=== PATIENT | male | born 1970 | race Two or more races ===

== ENCOUNTER 2025-03-06 13:48 | Inpatient (IN) | payer MEDICAID, OTHER ==
[~2025-03-06] VITALS: Ht 193 cm; Wt 153.2 kg
--- NOTE | 2025-03-06 15:45 | ED.PDOC ---
GI ASSESSMENT HPI Comments This is a 54 year-old male who presents to the ED with a chief complaint of abdominal pain as of this morning. Patient reports a Hx of diverticulitis, and states symptoms are similar to last diagnoses. Patient reports last BM was X4 days ago. Patient has no further complaints or modifying factors at this time. Patient denies symptoms of blood streaked stool, N/V, dizziness, weakness, or fever. Chief Complaint: Abdominal Pain Time Seen by MD: 15:22 Reviewed Notes: Medications, Allergies Allergies: Coded Allergies: NO KNOWN ALLERGIES (Unverified , 03/06/25) Information Source: Patient Mode of Arrival: Ambulatory Timing: Hours Duration: Since onset Severity: Moderate Pain Location: Diffuse Associated sign and symptoms: Constipation, Abdominal Pain Past Medical History Surgical History: Denies all surgeries Family History Family History: Unknown Social History Smoker: Unknown Alcohol: Unknown Drugs: Unknown Lives In: Home Constitutional: denies: chills, diaphoresis, fatigue, fever, malaise, sweats, weakness, others EENTM: denies: blurred vision, double vision, ear bleeding, ear discharge, ear drainage, ear pain, ear ringing, eye pain, eye redness, hearing loss, mouth pain, mouth swelling, nasal discharge, nose bleeding, nose congestion, nose pain, photophobia, tearing, throat pain, throat swelling, voice changes, others Respiratory: denies: cough, hemoptysis, orthopnea, SOB at rest, shortness of breath, SOB with excertion, stridor, wheezing, others Cardiovascular: denies: chest pain, dizzy spells, diaphoresis, Dyspnea on exertion, edema, irregular heart beat, left arm pain, lightheadedness, palpitations, PND, syncope, others Gastrointestinal: reports: abdominal pain, constipated; denies: abdomen distended, blood streaked bowels, diarrhea, dysphagia, difficulty swallowing, hematemesis, melena, nausea, poor appetite, poor fluid intake, rectal bleeding, rectal pain, vomiting, others Genitourinary: denies: burning, dysuria, flank pain, frequency, hematuria, incontinence, penile discharge, penile sore, pain, testicle pain, testicle swelling, urgency, others Neurological: denies: dizziness, fainting, headache, left sided numbness, left sided weakness, numbness, paresthesia, pre-existing deficit, right sided numbness, right sided weakness, seizure, speech problems, tingling, tremors, weakness, others Musculoskeletal: denies: back pain, gout, joint pain, joint swelling, muscle pain, muscle stiffness, neck pain, others Integumetry: denies: bruises, change in color, change in hair/nails, dryness, laceration, lesions, lumps, rash, wounds, others Allergic/Immunocompromised: denies: Difficulty Healing, Frequent Infections, Hives, Itching, others Hematologic/Lymphatic: denies: anemia, blood clots, easy bleeding, easy bruising, swollen glands, others Endocrine: denies: excessive hunger, excessive sweating, excessive thirst, excessive urination, flushing, intolerance to cold, intolerance to heat, unexplained weight gain, unexplained weight loss, others Psychiatric: denies: anxiety, bipolar disorder, depression, hopeless, panic disorder, schizophrenia, sleepless, suicidal, others All Other Systems: Reviewed and Negative Physical Exam General Appearance: Moderate Distress, Obese HEENT: Normal ENT Inspection, Pharynx Normal, TMs Normal Neck: Full Range of Motion, Non-Tender, Normal, Normal Inspection Respiratory: Chest Non-Tender, Lungs Clear, No Accessory Muscle Use, No Respiratory Distress, Normal Breath Sounds Cardiovascular: No Edema, No JVD, No Murmur, No Gallop, Normal Peripheral Pulses, Regular Rate/Rhythm Breast Exam: Deferred Gastrointestinal: No Organomegaly, Non Tender, No Pulsatile Mass, Normal Bowel Sounds, Soft Genitalia: Deferred Pelvic: Deferred Rectal: Deferred Extremities: No calf tenderness, Normal capillary refill, Normal inspection, Normal range of motion, Non-tender, No pedal edema Musculoskeletal : Apperance: Normal Neurologic: Alert, second class welder II-XII nml as Tested, No Motor Deficits, Normal Affect, Normal Mood, No Sensory Deficits Cerebellar Function: Normal Reflexes: Normal Skin: Dry, Normal Color, Warm Peripheral Pulses: 3+ Radial (R), 3+ Radial (L) Lymphatic: No Adenopathy Was a procedure done? Was a procedure done?: No GI differential Dx Differential Diagnosis: Constipation, Diverticular disease, Esophagitis, Gastritis/PUD, Gastroenteritis, Inflammatory BD, Dehydration, Food Poisoning, Bacterial, Parasitic, Viral X-Ray, Labs, Meds, VS Vital Signs Date Time Temp Pulse Resp B/P (MAP) Pulse Ox O2 Delivery O2 Flow Rate FiO2 11/30/25 17:55 98.2 98 16 159/110 (126) 97 98.2 03/06/25 13:50 98.5 96 16 165/106 93 98.5 Lab Test 03/06/25 15:37 Range/Units White Blood Count 13.5 H 4.4-10.8 10^3/uL Red Blood Count 6.12 H 4.5-5.90 10^6/uL Hemoglobin 15.7 13.5-17.5 g/dL Hematocrit 47.4 41.0-53.0 % Mean Corpuscular Volume 77.5 L 80.0-100.0 fL Mean Corpuscular Hemoglobin 25.7 L 28.0-32.0 pg Mean Corpuscular Hemoglobin Concent 33.2 32.0-36.0 g/dL Red Cell Distribution Width 14.1 11.8-14.3 % Platelet Count 236 140-450 10^3/uL Mean Platelet Volume 8.7 6.9-10.8 fL Neutrophils (%) (Auto) 79.6 37.0-80.0 % Lymphocytes (%) (Auto) 11.4 10.0-50.0 % Monocytes (%) (Auto) 6.0 0.0-12.0 % Eosinophils (%) (Auto) 2.5 0.0-7.0 % Basophils (%) (Auto) 0.5 0.0-2.0 % Neutrophils # (Auto) 10.8 H 1.6-8.6 10 ^3/uL Lymphocytes # (Auto) 1.5 0.4-5.4 10 ^3/uL Monocytes # (Auto) 0.8 0-1.3 10 ^3/uL Eosinophils # (Auto) 0.3 0-0.8 10 ^3/uL Basophils # (Auto) 0.1 0-0.2 10 ^3/uL Nucleated Red Blood Cells 0.1 % Sodium Level 141 136-145 mmol/L Potassium Level 4.1 3.5-5.1 mmol/L Chloride Level 108 H 98-107 mmol/L Carbon Dioxide Level 25 20-31 mmol/L Anion Gap 8 5-15 Blood Urea Nitrogen 13 9-23 mg/dL Creatinine 1.17 0.700-1.30 mg/dL Glomerular Filtration Rate Calc 75 >90 mL/min BUN/Creatinine Ratio 11.1 10.0-20.0 Serum Glucose 90 74-106 mg/dL Calcium Level 9.8 8.7-10.4 mg/dL Patient alert. Complaining of abdominal pain. Vitals stable. Answering questions. Abdomen is soft. WBC elevated. Hemoglobin within normal limits. Blood pressure elevated. Was given clonidine. Establish intravenous access. Was given fluids. Explained to the patient. Continue monitoring. Time of 1ST Reevaluation: 16:19 Reevaluation 1ST: Unchanged Patient Education/Counseling: Diagnosis, Treatment Family Education/Counseling: No Family Present SEPSIS Sepsis Screen Date sepsis recognized/suspect: Mar 06, 2025 Time Sepsis recognized/suspect: 135 Recent Procedure: No On Antibiotic Therapy: No Respiratory Rate >20: No Heart Rate >90: Yes Temp<36 C (96.8 F) or >38.3 C: No SBP <90 or MAP <65 mmHG: No New Acute Mental Status Change: No Is the patient on CPAP, BIPAP,: No Physician Orders Ct Ab Pel Wo Con-No Oral Or Iv (03/06/25 15:30) Sodium Chloride 0.9% (03/06/25 17:30) Metronidazole 500mg/100ml (Flagyl 500mg/ (03/06/25 17:30) Vital Signs Date Time Temp Pulse Resp B/P (MAP) Pulse Ox O2 Delivery O2 Flow Rate FiO2 03/06/25 17:55 98.2 98 16 159/110 (126) 97 98.2 03/06/25 13:50 98.5 96 16 165/106 93 98.5 Laboratory Tests Test 03/06/25 15:37 White Blood Count 13.5 10^3/uL (4.4-10.8) H Departure 1 Departure Time of Disposition: 17:18 Impression: Primary Impression: Non-specific colitis Additional Impressions: Acute abdominal pain Hypertensive urgency Disposition: ADMITTED INPATIENT Admit to: Med Surg Condition: Guarded Critical Care Note Critical Care Time?: No Stability Stability form required: No Heart Score Heart Score: Heart Score Response (Comments) Value History N/A 0 EKG N/A 0 Age N/A 0 Risk Factors N/A 0 Troponin N/A 0 Total 0 I personally scribed for TRISH ELIZALDE MD ([email or web address]) on 03/06/25 at 15:45. Electronically submitted by Mary Alanis ([email or web address]). TRISH ELIZALDE MD Mar 06, 2025 15:45
[2025-03-06 15:51] LABS: Hematocrit 47.4 % (41.0-53.0); Nucleated Red Blood Cells % 0.1 %
[2025-03-06 15:53] LABS: Hemoglobin 15.7 g/dL (13.5-17.5); Mean Corpuscular Hemoglobin 25.7 pg (28.0-32.0); Mean Corpuscular Volume 77.5 fL (80.0-100.0)
[2025-03-06 15:54] LABS: Potassium 4.1 mmol/L (3.5-5.1); Sodium 141 mmol/L (136-145)
[2025-03-06 15:55] LABS: Anion Gap 8 (5-15); Calcium 9.8 mg/dL (8.7-10.4); Carbon Dioxide 25 mmol/L (20-31)
[2025-03-06 16:00] LABS: BUN/Creatinine Ratio 11.1 (10.0-20.0); Blood Urea Nitrogen 13 mg/dL (9-23); Glucose 90 mg/dL (74-106)
[2025-03-06 16:01] LABS: Chloride 108 mmol/L (98-107)
[2025-03-06] MEDS: SODIUM CHLORIDE 0.9% 1,000 ML IV ONE (18:48)
--- NOTE | 2025-03-06 18:51 | DVH ---
COMPUTERIZED TOMOGRAPHY ABDOMEN AND PELVIS WITHOUT CONTRAST REASON FOR EXAM: stone. Flank pain. COMPARISON: None TECHNIQUE: Spiral scans were acquired from the diaphragm to the symphysis pubis without intravenous contrast administration. 2-D coronal and sagittal reformatted images were provided. Radiation optimization: All CT scans at this facility use at least one of these dose optimization techniques: Automated exposure control mA and/or kV adjustment per patient size (includes targeted exams where dose is matched to clinical indication) or iterative reconstruction. RADIATION DOSE: CTDI: 27.84 mGy DLP: 1586.53 mGy-cm FINDINGS: The visualized lung bases are grossly clear. There is no pleural effusion. There is no pericardial effusion. The spleen is not enlarged. The liver is within normal limits for size and contour. The liver is diffusely hypoattenuating. Evaluation of the abdominal organs is suboptimal in the absence of intravenous contrast. No calcified gallstone is identified. Unenhanced appearance of the pancreas is grossly un remarkable. The adrenal glands appear grossly normal. The kidneys are similar in size. There is no hydronephrosis of either kidney. There is no renal, ureteral, or bladder calculus. The urinary bladder is within normal limits. The prostate and seminal vesicles are within normal limits. There is extensive sigmoid diverticulosis without evidence of diverticulitis. The colonic stool burden is small. There is inflammatory stranding surrounding the appendix, consistent with acute appendicitis. The appendix is enlarged at 10 mm in diameter. No free fluid or free air is identified. No acute osseous abnormality is identified. IMPRESSION: Acute appendicitis.
[2025-03-06 18:55] VITALS: PULSE 91; RESP 13; O2SAT 97
[2025-03-06] MEDS ORDERED: ONDANSETRON HCL 4 MG/2 ML VIAL IV PRN (19:15)
[2025-03-06] MEDS ORDERED: MORPHINE SULFATE INJ 2 MG/ml SYRG IV PRN (19:15)
[2025-03-06] MEDS: PANTOPRAZOLE 40 MG/10 ML VIAL INJ IV ONE (19:34)
[2025-03-06 19:44] LABS: INR 1.03 (0.9-1.15); Partial Thromboplastin Time 27.1 SEC (24.5-34.5); Prothrombin Time 10.9 sec (9.3-11.8)
[2025-03-06 19:56] LABS: Alanine Aminotransferase 32.0 U/L (7-40); Albumin 4.9 g/dL (3.2-4.8); Alkaline Phosphatase 79.0 U/L (46-116); Bilirubin, Direct 0.2 mg/dL (<0.3); Bilirubin, Total 0.7 mg/dL (0.2-1.0); Total Protein 8.0 g/dL (5.7-8.2)
--- NOTE | 2025-03-06 21:07 | DVHHPRES ---
History of Present Illness Resident Creating Document: ADALID CHRIS RESIDENT History of Present Illness Patient is a 54-year-old male with previous medical history of diverticulitis/diverticulosis presented to the ED with a chief complaint of intractable right lower quadrant pain. Reports the pain started earlier this morning was [id number] in intensity, nonradiating in the right lower quadrant, denied any associated nausea or vomiting reported that he was feeling constipated and last bowel movement was 3-4 days ago. Patient took a laxative early in the morning and had a bowel movement today while in the hospital, and had small amount of stool. Patient denied any fever, chills. Patient denied any abdominal surgeries in the past. CT abdomen pelvis was done which showed acute appendicitis. Patient will be admitted for further evaluation Medical history: Diverticulitis/diverticulosis Surgical history: Denies Social history: Patient denies smoking, alcohol, drug use Home medications: None Review of Systems Review of Systems Patient seen and examined at the chair side Has a right lower quadrant tenderness Denies nausea, vomiting, fever, chills Allergies: Coded Allergies: NO KNOWN ALLERGIES (Unverified , 03/06/25) Medications Current Medications Medications Dose Ordered Sig/Jessica Route Start Time Stop Time Status Last Admin Dose Admin Ceftriaxone Sodium 50 ml @ 100 mls/hr DAILY@09 IV 03/07/25 09:00 Metronidazole 100 ml @ 100 mls/hr Q8HR IV 03/06/25 22:00 Ondansetron HCl 4 mg Q6HPRN PRN IV 03/06/25 19:15 Pantoprazole Sodium 40 mg DAILY IV 03/07/25 10:00 Morphine Sulfate 2 mg Q6HPRN PRN IV 03/06/25 19:15 Exam Vital Signs Vital Signs Date Time Temp Pulse Resp B/P (MAP) Pulse Ox O2 Delivery O2 Flow Rate FiO2 03/06/25 19:43 131/89 03/06/25 19:38 98.0 89 13 98 98.0 03/06/25 18:55 Room Air* 0 21 Exam Skin - Patients skin is warm and dry. HEENT - normocephalic, atraumatic, moist mucous membranes. Neck - full ROM, no LAD, no JVD Pulmonary - B/L equal breath sounds difficult because of the body habitus, no wheezing or rales appreciable cardiovascular - regular S1,S2 heard, no added sounds, no murmurs heard. GI - soft, nontender abdomen. no hepatospleenomegaly. Bowel sounds normoactive Neurological - Patient is A/O X 4 . Bilateral upper extremity strength 5/5, bilateral lower extremity strength 5/5, no facial droop, normal speech, no tremor, no sensory deficiets. Labs/Xrays Labs Test 03/06/25 18:37 03/06/25 15:37 Range/Units Prothrombin Time 10.9 9.3-11.8 sec Prothrombin Time INR 1.03 0.9-1.15 Activated Partial Thromboplast Time 27.1 24.5-34.5 SEC Lactic Acid Level 1.5 0.4-2.0 mmol/L Total Bilirubin 0.7 0.2-1.0 mg/dL Direct Bilirubin 0.2 <0.3 mg/dL Aspartate Amino Transferase (AST) 22 13-40 U/L Alanine Aminotransferase (ALT) 32 7-40 U/L Alkaline Phosphatase 79 46-116 U/L Total Protein 8.0 5.7-8.2 g/dL Albumin 4.9 H 3.2-4.8 g/dL Thyroid Stimulating Hormone (TSH) 1.02 0.55-4.78 uIU/mL White Blood Count 13.5 H 4.4-10.8 10^3/uL Red Blood Count 6.12 H 4.5-5.90 10^6/uL Hemoglobin 15.7 13.5-17.5 g/dL Hematocrit 47.4 41.0-53.0 % Mean Corpuscular Volume 77.5 L 80.0-100.0 fL Mean Corpuscular Hemoglobin 25.7 L 28.0-32.0 pg Mean Corpuscular Hemoglobin Concent 33.2 32.0-36.0 g/dL Red Cell Distribution Width 14.1 11.8-14.3 % Platelet Count 236 140-450 10^3/uL Mean Platelet Volume 8.7 6.9-10.8 fL Neutrophils (%) (Auto) 79.6 37.0-80.0 % Lymphocytes (%) (Auto) 11.4 10.0-50.0 % Monocytes (%) (Auto) 6.0 0.0-12.0 % Eosinophils (%) (Auto) 2.5 0.0-7.0 % Basophils (%) (Auto) 0.5 0.0-2.0 % Neutrophils # (Auto) 10.8 H 1.6-8.6 10 ^3/uL Lymphocytes # (Auto) 1.5 0.4-5.4 10 ^3/uL Monocytes # (Auto) 0.8 0-1.3 10 ^3/uL Eosinophils # (Auto) 0.3 0-0.8 10 ^3/uL Basophils # (Auto) 0.1 0-0.2 10 ^3/uL Nucleated Red Blood Cells 0.1 % Sodium Level 141 136-145 mmol/L Potassium Level 4.1 3.5-5.1 mmol/L Chloride Level 108 H 98-107 mmol/L Carbon Dioxide Level 25 20-31 mmol/L Anion Gap 8 5-15 Blood Urea Nitrogen 13 9-23 mg/dL Creatinine 1.17 0.700-1.30 mg/dL Glomerular Filtration Rate Calc 75 >90 mL/min BUN/Creatinine Ratio 11.1 10.0-20.0 Serum Glucose 90 74-106 mg/dL Calcium Level 9.8 8.7-10.4 mg/dL SEPSIS Sepsis Screen Date sepsis recognized/suspect: Mar 06, 2025 Time Sepsis recognized/suspect: 1854 Recent Procedure: No On Antibiotic Therapy: No Respiratory Rate >20: No Heart Rate >90: Yes Temp<36 C (96.8 F) or >38.3 C: No SBP <90 or MAP <65 mmHG: No New Acute Mental Status Change: No Is the patient on CPAP, BIPAP,: No Physician Orders Ct Ab Pel Wo Con-No Oral Or Iv (03/06/25 15:30) Blood Culture (03/06/25 18:25) Admit (03/06/25 19:04) Oxygen By Nasal Cannula (03/06/25 19:04) Stat Ekg For Chest Pain (03/06/25 19:04) Notify Of Changes From Base (03/06/25 19:04) Emergency Dysrhythmia Protocol (03/06/25 19:04) Ceftriaxone 1gm/50ml (Rocephin) (03/07/25 09:00) Metronidazole 500mg/100ml (Flagyl 500mg/ (03/06/25 22:00) Npo (Nothing By Mouth) Diet (03/07/25 Breakfast) Ondansetron Hcl (Zofran) (03/06/25 19:15) Pantoprazole (Protonix) (03/07/25 10:00) Morphine Sulfate Injection (03/06/25 19:15) Complete Blood Count (03/07/25 04:00) Urinalysis (03/06/25 19:04) Sodium Chloride 0.9% (03/06/25 19:15) * Surgical Consult (03/06/25 ) Vital Signs Date Time Temp Pulse Resp B/P (MAP) Pulse Ox O2 Delivery O2 Flow Rate FiO2 03/06/25 19:43 131/89 03/06/25 19:38 98.0 89 13 131/89 (103) 98 98.0 03/06/25 18:55 98.0 91 13 135/92 (106) 97 98.0 03/06/25 18:55 91 13 97 Room Air* 0 21 03/06/25 18:21 159/110 03/06/25 17:55 98.2 98 16 159/110 (126) 97 98.2 03/06/25 13:50 98.5 96 16 165/106 93 98.5 Laboratory Tests Test 03/06/25 15:37 03/06/25 18:37 White Blood Count 13.5 10^3/uL (4.4-10.8) H Lactic Acid Level 1.5 mmol/L (0.4-2.0) Medications Medications Dose Ordered Sig/Jessica Route Start Time Stop Time Status Last Admin Dose Admin Ceftriaxone Sodium 50 ml @ 100 mls/hr ONCE ONCE IV 03/06/25 17:30 03/06/25 17:59 DC 03/06/25 18:48 100 MLS/HR Clonidine HCl 0.2 mg ONCE ONCE PO 03/06/25 18:15 03/06/25 18:16 DC 03/06/25 18:21 0.2 MG Metronidazole 100 ml @ 100 mls/hr ONCE ONCE IV 03/06/25 17:30 03/06/25 18:29 DC 03/06/25 19:30 100 MLS/HR Pantoprazole Sodium 40 mg ONCE ONCE IV 03/06/25 19:15 03/06/25 19:30 DC 03/06/25 19:34 40 MG Sodium Chloride 1,000 ml @ 1,000 mls/hr Q1H ONCE IV 03/06/25 17:30 03/06/25 18:29 DC 03/06/25 18:48 1,000 MLS/HR Assessment/Plan Assessment/Plan Intractable abdominal pain Acute appendicitis - IV antibiotics ceftriaxone and metronidazole - NPO - Surgical consult - Protonix - Zofran - IV Toradol and morphine for pain Goals of care discussed with the patient for over 16 minutes , full code. Time spent: 33 minutes Plan discussed with Dr. Farr Plan discussed with: Patient, Other (RN) My Orders Orders - ADALID CHRIS RESIDENT Procedure Category Date Status Time Admit ADMIT 03/06/25 Transmitted 19:04 Oxygen By Nasal RT 03/06/25 Transmitted Cannula 19:04 Stat Ekg For Chest JACEK 03/06/25 In Process Pain 19:04 Notify Md Of Changes JACEK 03/06/25 In Process From Base 19:04 Emergency Dysrhythmia JACEK 03/06/25 In Process Protocol 19:04 Ceftriaxone 1gm/50ml PHA 03/07/25 In Process (Rocephin) 09:00 Metronidazole PHA 03/06/25 In Process 500mg/100ml (Flagyl 22:00 Npo (Nothing By DIET 03/07/25 Transmitted Mouth) Diet Breakfast Ondansetron Hcl PHA 03/06/25 In Process (Zofran) 19:15 Pantoprazole PHA 03/07/25 In Process (Protonix) 10:00 Morphine Sulfate PHA 03/06/25 In Process Injection 19:15 Complete Blood Count LAB 03/07/25 Verified 04:00 Urinalysis LAB 03/06/25 Logged 19:04 Sodium Chloride 0.9% PHA 03/06/25 In Process 19:15 * Surgical Consult CONS 03/06/25 Verified Date of Service: Mar 06, 2025 Billing Provider: BRIAN FARR MD Common Visit Codes: 23751-[id number] INP/OBS CARE (HIGH) Secondary Visit Codes: [id number] CARE PLAN 30 MINUTES ADALID CHRIS RESIDENT Mar 06, 2025 21:07 BRIAN FARR MD Mar 06, 2025 23:18
[2025-03-06] MEDS ORDERED: KETOROLAC TROMETH 30 MG/ML 1ML VIAL IV PRN (21:15)
[2025-03-06] MEDS ORDERED: DEXTROSE (50%) 50ML SYRG IV PRN (21:15)
[2025-03-06 22:10] VITALS: BP 140/85; PULSE 79; RESP 19; TEMP 97.7; O2SAT 100
[2025-03-06 23:39] VITALS: BP 140/85; PULSE 79; RESP 19; TEMP 97.7; O2SAT 100
[2025-03-07] MEDS: InsuLIN REG 1unit/0.01ml Soln (100units/ml) SC SCH
[2025-03-07] MEDS: ACCU-CHEK COMFORT CURVE STRIP VI SCH
[2025-03-07] MEDS: SODIUM CHLORIDE 0.9% 1,000 ML IV ONE
[2025-03-07 01:00] VITALS: BP 133/94; PULSE 76; RESP 19; TEMP 98.3; O2SAT 94
[2025-03-07 05:00] VITALS: BP 130/87; PULSE 85; RESP 19; TEMP 97.4; O2SAT 96
[2025-03-07 05:12] LABS: Hematocrit 45.0 % (41.0-53.0); Hemoglobin 14.9 g/dL (13.5-17.5); Mean Corpuscular Hemoglobin 25.5 pg (28.0-32.0); Mean Corpuscular Volume 77.3 fL (80.0-100.0); Nucleated Red Blood Cells % 0.1 %
[2025-03-07 08:53] VITALS: BP 127/68; PULSE 70; RESP 16; O2SAT 98
[2025-03-07] MEDS: PANTOPRAZOLE 40 MG/10 ML VIAL INJ IV SCH (09:30)
--- NOTE | 2025-03-07 10:59 | DVHINCON2 ---
Consultation - Surgical Date Seen: Mar 07, 2025 Referring Physician Reason for Consultation Appendicitis History of Present Illness History of Present Illness Mr. Yee is a 54-year-old male who presented yesterday to the ED due to abdominal pain bloating and constipation. He states that the pain was 10/10 which caused him to come to the ED. Patient states that he is having a episode of diverticulitis, which has he has had in the past. Denies fevers, chills, nausea, vomiting, changes in urinary or stooling habits, blood in the stool. Past Medical/Surgical History Past Medical/Surgical History PMH diverticulosis/diverticulitis PSH right knee arthroscopy Family and Social History Family and Social History Family history noncontributory Drugs marijuana occasional ETOH/T Ob denies Allergies and medications Allergies: Coded Allergies: NO KNOWN ALLERGIES (Unverified , 03/06/25) Review of systems Review of Systems: Deferred Examination Vital signs Vital Signs Date Time Temp Pulse Resp B/P (MAP) Pulse Ox O2 Delivery O2 Flow Rate FiO2 03/07/25 08:53 70 16 127/68 (87) 98 03/07/25 05:00 97.4 97.4 03/06/25 23:39 Room Air* 0 21 Medications Current Medications Medications (Trade) Dose Ordered Sig/Jessica Route PRN Reason Start Time Stop Time Status Last Admin Ceftriaxone Sodium 50 ml @ 100 mls/hr DAILY@09 IV 03/07/25 09:00 03/07/25 09:29 Metronidazole 100 ml @ 100 mls/hr Q8HR IV 03/06/25 22:00 03/07/25 06:37 Ondansetron HCl (Zofran) 4 mg Q6HPRN PRN IV NAUSEA / VOMITING 03/06/25 19:15 Pantoprazole Sodium (Protonix) 40 mg DAILY IV 03/07/25 10:00 03/07/25 09:30 Morphine Sulfate 2 mg Q6HPRN PRN IV SEVERE PAIN (7-10 PAIN SCALE) 03/06/25 19:15 Diagnostic Test (Pha) (Accu-Chek Comfort Curve T) 1 strip Q6HR 03/07/25 00:00 03/07/25 00:00 Insulin Human Regular (InsuLIN R) Q6HR SC 03/07/25 00:00 Dextrose 50 ml UD PRN IV Blood Sugar LESS THAN 60 03/06/25 21:15 Ketorolac Tromethamine (Toradol Injection) 15 mg Q6HPRN PRN IV MODERATE PAIN (4-6 PAIN SCALE) 03/06/25 21:15 03/11/25 21:14 Laboratory Labs Test 03/07/25 04:52 03/07/25 00:54 03/06/25 18:37 03/06/25 15:37 Range/Units White Blood Count 6.9 # 4.4-10.8 10^3/uL Red Blood Count 5.82 4.5-5.90 10^6/uL Hemoglobin 14.9 13.5-17.5 g/dL Hematocrit 45.0 41.0-53.0 % Mean Corpuscular Volume 77.3 L 80.0-100.0 fL Mean Corpuscular Hemoglobin 25.5 L 28.0-32.0 pg Mean Corpuscular Hemoglobin Concent 33.0 32.0-36.0 g/dL Red Cell Distribution Width 14.7 H 11.8-14.3 % Platelet Count 211 140-450 10^3/uL Mean Platelet Volume 8.3 6.9-10.8 fL Neutrophils (%) (Auto) 59.7 37.0-80.0 % Lymphocytes (%) (Auto) 26.2 10.0-50.0 % Monocytes (%) (Auto) 8.6 0.0-12.0 % Eosinophils (%) (Auto) 4.8 0.0-7.0 % Basophils (%) (Auto) 0.7 0.0-2.0 % Neutrophils # (Auto) 4.1 1.6-8.6 10 ^3/uL Lymphocytes # (Auto) 1.8 0.4-5.4 10 ^3/uL Monocytes # (Auto) 0.6 0-1.3 10 ^3/uL Eosinophils # (Auto) 0.3 0-0.8 10 ^3/uL Basophils # (Auto) 0.1 0-0.2 10 ^3/uL Nucleated Red Blood Cells 0.1 % POC Glucose 96 70-106 mg/dl Prothrombin Time 10.9 9.3-11.8 sec Prothrombin Time INR 1.03 0.9-1.15 Activated Partial Thromboplast Time 27.1 24.5-34.5 SEC Lactic Acid Level 1.5 0.4-2.0 mmol/L Total Bilirubin 0.7 0.2-1.0 mg/dL Direct Bilirubin 0.2 <0.3 mg/dL Aspartate Amino Transferase (AST) 22 13-40 U/L Alanine Aminotransferase (ALT) 32 7-40 U/L Alkaline Phosphatase 79 46-116 U/L Total Protein 8.0 5.7-8.2 g/dL Albumin 4.9 H 3.2-4.8 g/dL Thyroid Stimulating Hormone (TSH) 1.02 0.55-4.78 uIU/mL Sodium Level 141 136-145 mmol/L Potassium Level 4.1 3.5-5.1 mmol/L Chloride Level 108 H 98-107 mmol/L Carbon Dioxide Level 25 20-31 mmol/L Anion Gap 8 5-15 Blood Urea Nitrogen 13 9-23 mg/dL Creatinine 1.17 0.700-1.30 mg/dL Glomerular Filtration Rate Calc 75 >90 mL/min BUN/Creatinine Ratio 11.1 10.0-20.0 Serum Glucose 90 74-106 mg/dL Calcium Level 9.8 8.7-10.4 mg/dL Examination: GENERAL:Normal (AAO x3), HEENT:Normal (Neck supple), LUNGS:Normal (Nonlabored breathing with symmetric expansion), ABDOMEN:Normal (Globose, no scars, no masses, no hernias, soft, depressible, very mild right lower quadrant tenderness, no rebound, no guarding) Problem List/Assessment/Plan Problems: (1) Acute appendicitis Assessment and Plan Mr. Yee is a 54-year-old male who presents with the acute appendicitis. CT shows enlarged, inflamed appendix with surrounding stranding. CT also shows diverticulosis of the sigmoid colon. Patient will benefit from laparoscopic appendectomy given the acutely inflamed appendix. Patient states that he is feeling well this morning and pain is minimal and he would like to pursue nonoperative management. I explained the risks, benefits, complications, alternatives of the surgery. I also explained to the patient that 2/3 of the patient's that proceed with nonoperative management, with antibiotics only, usually come back with a appendicitis were there being the same hospitalization or months down the line. Also explained to the patient that if the appendix continues to get inflamed and perforates, management will be very different and acutely to abscesses. 1. Continue with IV antibiotics 2. NPO at midnight in case his condition worsens 3. Maintenance IV fluids Plan discussed with Plan discussed with: Patient Visit Coding Surgery Date of Service if different f: Mar 07, 2025 Billing Provider: MICHAEL CARPENTER MD Surgery Visit Codes: 24466 - INP CONSULT <110 MIN MICHAEL CARPENTER MD Mar 07, 2025 10:59
[2025-03-07 12:04] LABS: Hepatitis B Surface Antigen Negative (Negative)
[2025-03-07 12:18] LABS: Hepatitis C Antibody Negative (Negative)
[2025-03-07 14:35] VITALS: BP 127/89; PULSE 85; RESP 18; TEMP 98.5; O2SAT 94
[2025-03-07] MEDS ORDERED: AUG875T PO (15:26)
--- NOTE | 2025-03-07 16:15 | DVHDSRES ---
Discharge Summary Date of Admission Resident Creating Document: ADALID CHRIS RESIDENT Mar 06, 2025 at 19:04 Date of Discharge: Mar 07, 2025 Admitting Diagnosis Acute appendicitis Labs/Diagnostic Data: Laboratory Results Test 03/07/25 11:03/07/25 04:52 03/06/25 18:37 03/06/25 15:37 POC Glucose 103 mg/dl (70-106) White Blood Count 6.9 10^3/uL (4.4-10.8) Red Blood Count 5.82 10^6/uL (4.5-5.90) Hemoglobin 14.9 g/dL (13.5-17.5) Hematocrit 45.0 % (41.0-53.0) Mean Corpuscular Volume 77.3 fL (80.0-100.0) Mean Corpuscular Hemoglobin 25.5 pg (28.0-32.0) Mean Corpuscular Hemoglobin Concent 33.0 g/dL (32.0-36.0) Red Cell Distribution Width 14.7 % (11.8-14.3) Platelet Count 211 10^3/uL (140-450) Mean Platelet Volume 8.3 fL (6.9-10.8) Neutrophils (%) (Auto) 59.7 % (37.0-80.0) Lymphocytes (%) (Auto) 26.2 % (10.0-50.0) Monocytes (%) (Auto) 8.6 % (0.0-12.0) Eosinophils (%) (Auto) 4.8 % (0.0-7.0) Basophils (%) (Auto) 0.7 % (0.0-2.0) Neutrophils # (Auto) 4.1 10 ^3/uL (1.6-8.6) Lymphocytes # (Auto) 1.8 10 ^3/uL (0.4-5.4) Monocytes # (Auto) 0.6 10 ^3/uL (0-1.3) Eosinophils # (Auto) 0.3 10 ^3/uL (0-0.8) Basophils # (Auto) 0.1 10 ^3/uL (0-0.2) Nucleated Red Blood Cells 0.1 % Hepatitis B Surface Antigen Negative (Negative) Hepatitis C Antibody Negative (Negative) Prothrombin Time 10.9 sec (9.3-11.8) Prothrombin Time INR 1.03 (0.9-1.15) Activated Partial Thromboplast Time 27.1 SEC (24.5-34.5) Lactic Acid Level 1.5 mmol/L (0.4-2.0) Total Bilirubin 0.7 mg/dL (0.2-1.0) Direct Bilirubin 0.2 mg/dL (<0.3) Aspartate Amino Transferase (AST) 22 U/L (13-40) Alanine Aminotransferase (ALT) 32 U/L (7-40) Alkaline Phosphatase 79 U/L (46-116) Total Protein 8.0 g/dL (5.7-8.2) Albumin 4.9 g/dL (3.2-4.8) Thyroid Stimulating Hormone (TSH) 1.02 uIU/mL (0.55-4.78) Sodium Level 141 mmol/L (136-145) Potassium Level 4.1 mmol/L (3.5-5.1) Chloride Level 108 mmol/L (98-107) Carbon Dioxide Level 25 mmol/L (20-31) Anion Gap 8 (5-15) Blood Urea Nitrogen 13 mg/dL (9-23) Creatinine 1.17 mg/dL (0.700-1.30) Glomerular Filtration Rate Calc 75 mL/min (>90) BUN/Creatinine Ratio 11.1 (10.0-20.0) Serum Glucose 90 mg/dL (74-106) Calcium Level 9.8 mg/dL (8.7-10.4) Other Laboratory Tests 03/07/25 04:52 03/06/25 15:37 Brief Hx & Hospital Course: Patient is a 54-year-old male with previous medical history of diverticulitis/diverticulosis presented to the ED with a chief complaint of intractable right lower quadrant pain. Reports the pain started earlier this morning was [id number] in intensity, nonradiating in the right lower quadrant, denied any associated nausea or vomiting reported that he was feeling constipated and last bowel movement was 3-4 days ago. Patient took a laxative early in the morning and had a bowel movement today while in the hospital, and had small amount of stool. Patient denied any fever, chills. Patient denied any abdominal surgeries in the past. CT abdomen pelvis was done which showed acute appendicitis. Patient will be admitted for further evaluation Medical history: Diverticulitis/diverticulosis Surgical history: Denies Social history: Patient denies smoking, alcohol, drug use Home medications: None Brief hospital course: Patient came with intractable abdominal pain, due to acute appendicitis, patient was started on IV ceftriaxone, metronidazole and was kept NPO. surgical consult was placed. Patient refused surgery. Patient was explained of risks of not getting surgery Including due to perforation. Patient still did not want surgery and wants a 2nd opinion outpatient. Patient was given IV Toradol, morphine for pain, Zofran, Protonix for GI. Patient is obese with BMI of 41.1 for which patient was counseled on diet, exercise, lifestyle modifications for greater than 18 minutes. Patient was advised to decrease red meat intake, drink more water and avoid constipation. Patient is stable for discharge and is advised to follow-up with discharge Clinic in 1 week. Patient understands the complications that might happen post discharge. General: Patient alert and oriented in person, place and time. Patient following commands. HEENT: Normocephalic, atraumatic, moist mucous membranes Respiratory/pulmonary: Clear lungs bilaterally, vesicular murmurs present in almost all lung santos, no associated crackles or wheezes. Cardiovascular: Normal heart sounds S1 and S2 with no associated murmurs Abdomen: Abdomen nondistended, there is no pain to palpation in any of the abdominal quadrants, no palpable masses. Extremities: There is no peripheral edema present at the lower extremities. Peripheral Pulses: 3+ Radial (R). 3+ Radial (L). 3+ Dorsalis pedis (R). 3+ Dorsalis pedis(L) Skin: No rashes or pruritus, there is no sacral edema present at this time. Neurological: Intact cranial nerves with no focal neurologic deficits Patient is to take Augmentin for 14 days Operations or Procedures ORDERING PHYSICIAN: TRISH ELIZALDE MD PROCEDURE(s): ABPL - CT AB PEL WO CON-NO ORAL OR IV REASON: stone ORDER NUMBER(s): [id number], ACCESSION NUMBER(s): [id number] COMPUTERIZED TOMOGRAPHY ABDOMEN AND PELVIS WITHOUT CONTRAST REASON FOR EXAM: stone. Flank pain. COMPARISON: None TECHNIQUE: Spiral scans were acquired from the diaphragm to the symphysis pubis without intravenous contrast administration. 2-D coronal and sagittal reformatted images were provided. Radiation optimization: All CT scans at this facility use at least one of these dose optimization techniques: Automated exposure control mA and/or kV adjustment per patient size (includes targeted exams where dose is matched to clinical indication) or iterative reconstruction. RADIATION DOSE: CTDI: 27.84 mGy DLP: 1586.53 mGy-cm FINDINGS: The visualized lung bases are grossly clear. There is no pleural effusion. There is no pericardial effusion. The spleen is not enlarged. The liver is within normal limits for size and contour. The liver is diffusely hypoattenuating. Evaluation of the abdominal organs is suboptimal in the absence of intravenous contrast. No calcified gallstone is identified. Unenhanced appearance of the pancreas is grossly unremarkable. The adrenal glands appear grossly normal. The kidneys are similar in size. There is no hydronephrosis of either kidney. There is no renal, ureteral, or bladder calculus. The urinary bladder is within normal limits. The prostate and seminal vesicles are within normal limits. There is extensive sigmoid diverticulosis without evidence of diverticulitis. The colonic stool burden is small. There is inflammatory stranding surrounding the appendix, consistent with acute appendicitis. The appendix is enlarged at 10 mm in diameter. No free fluid or free air is identified. No acute osseous abnormality is identified. IMPRESSION: Acute appendicitis. ATED BY: BOB CRUZ MD DICTATED DATE/TIME: 03/06/251848 SIGNED BY: BOB CRUZ MD SIGNED DATE/TIME: 03/06/251848 Condition at Discharge: Stable Final Diagnosis/Problems List Intractable abdominal pain Acute appendicitis Obesity BMI 41.1 Marijuana abuse disorder Discharge Disposition: Home Discharge Instruct/Medications Diet: Regular Activity: No Restrictions, As Tolerated Follow Up/Referral: Follow-up with discharge Clinic in 1 week Medications: Augmentin 875 mg b.i.d. for 14 days Scheduled Amoxicillin & Pot Clavulanate (Augmentin Tablet), 875 MG PO BID Discharge Statement: "Patient was advised to return to the ER or call 911 if any headaches, dizziness, shortness of breath, chest pain, abdominal pain, bleeding, fevers, or worsening of medical condition. Patient was counseled about treatment plan, medications, possible side effects, patientverbalized understanding. All questions were answered to the best of my ability. This discharge took greater then 30 minutes in planning, reviewing documentation, counseling the patient, and discussing with other team members." ASSESSMENT ASSESSMENT Assessment Acute appendicitis Date of Service: Mar 07, 2025 Billing Provider: BRIAN DONALDSON MD Common Visit Codes: 00838-[facility]/OBS DISCH DAY >30min TOD [place]TON RESIDENT Mar 07, 2025 16:15 BRIAN DONALDSON MD Mar 08, 2025 01:54
[2025-03-07 16:34] VITALS: BP 127/89; PULSE 85; RESP 18; TEMP 98.5; O2SAT 94
[2025-03-07 17:00] VITALS: BP 128/84; PULSE 83; RESP 17; TEMP 98.5; O2SAT 98
== END 2025-03-07 18:40 | disposition home or self-care (01) | DRG 254 ==
LOC: ER 13:48 → OVERFLOW 19:04 → WEST WING 03-07 13:19
PROVIDERS: ADMIT Internal Medicine; ATTEND Internal Medicine
DX: K35.80 Unspecified acute appendicitis (principal); E66.9 Obesity, unspecified; F12.10 Cannabis abuse, uncomplicated; K52.9 Noninfective gastroenteritis and colitis, unspecified; K57.30 Diverticulosis of large intestine without perforation or abscess without bleeding; K59.00 Constipation, unspecified; Z68.41 Body mass index [BMI] 40.0-44.9, adult
CPT/HCPCS: 36415; 74176; 80048; 80076; 82962; 83605; 84443; 85025; 85610; 85730; 86803; 87040; 87340; 96365; 96375; G0378; J2470; J3490